=== PATIENT | male | born 1990 | race Caucasian/White ===

== ENCOUNTER 2020-07-29 22:49 | Emergency (ER) | payer MEDICARE, OTHER ==
[~2020-07-29] VITALS: Ht 167.6 cm; Wt 81.7 kg
== END 2020-07-30 00:50 | disposition home or self-care (01) ==
LOC: ER 22:49
DX: F20.9 Schizophrenia, unspecified (principal)

== ENCOUNTER 2020-08-03 09:05 | Emergency (ER) | payer MEDICARE, OTHER ==
[~2020-08-03] VITALS: Ht 167.6 cm; Wt 81.7 kg
[2020-08-03] MEDS ORDERED: RISP1 PO (11:09)
== END 2020-08-03 12:00 | disposition home or self-care (01) ==
LOC: ER 09:05
DX: F20.9 Schizophrenia, unspecified (principal); F17.210 Nicotine dependence, cigarettes, uncomplicated; Z59.0 Homelessness
CPT/HCPCS: 99285

== ENCOUNTER 2021-02-14 10:53 | Emergency (ER) | payer MEDICARE, OTHER ==
[~2021-02-14] VITALS: Ht 172.7 cm; Wt 100.7 kg
[~2021-02-14 10:53] MED LIST: RISP1 PO
[2021-02-14] MEDS ORDERED: Roxicodone5 MG PO (12:58)
[2021-02-14] MEDS ORDERED: NAPROXEN250 M1 PO (12:58)
== END 2021-02-14 13:13 | disposition home or self-care (01) ==
LOC: ER 10:53
DX: M54.16 Radiculopathy, lumbar region (principal); F17.200 Nicotine dependence, unspecified, uncomplicated
CPT/HCPCS: 99282; A9270